=== PATIENT | male | born 1950 | race Caucasian/White ===

== ENCOUNTER 2018-03-18 08:11 | Day surgery (SDC) | payer MEDICARE, OTHER ==
[2018-03-18] MEDS ORDERED: Gatifloxacin 0.5% Ophth Soln 2.5 ML Bot EYERT SCH (08:15)
[2018-03-18] MEDS ORDERED: Sodium Chloride 0.9% 10 ML Syringe FLUSH PRN (08:15)
[2018-03-18] MEDS ORDERED: Sodium Chloride 0.9% 1,000 ML IV SCH (08:15)
[2018-03-18] MEDS: Cyclopentolate 1% Opth Soln 2 ML Bottle EYERT SCH ×3 (08:33→08:57)
[2018-03-18] MEDS: Phenylephrine 10% Ophth Soln 5 ML Bot EYERT SCH ×3 (08:38→09:02)
[2018-03-18] MEDS ORDERED: Midazolam 1 MG/ML 2 ML SDV IV ONE (10:15)
[2018-03-18] MEDS ORDERED: Midazolam 1 MG/ML 2 ML SDV ONE (10:25)
[2018-03-18] MEDS ORDERED: Balanced Salt Solution Ophth Irrig 15 ML Bottle EYERT ONE (10:27)
[2018-03-18] MEDS ORDERED: Water For Irrigation,Sterile 1,500 ML Container IRR ONE (10:27)
[2018-03-18] MEDS ORDERED: Balanced Salt Solution Plus Ophth Irrig 500 ML Bottle IOCULAR ONE (10:27)
[2018-03-18] MEDS ORDERED: EPINEPHrine 1 MG/ML SDV ONE (10:27)
[2018-03-18] MEDS ORDERED: Carbachol 0.01% Intraocular 1.5 ML Vial EYERT ONE (10:27)
[2018-03-18] MEDS ORDERED: Dexamethasone/Neomycin/Polymyxin B Ophth Oint 3.5 GM Tube EYERT ONE (10:28)
[2018-03-18] MEDS ORDERED: Lidocaine 2% with EPINEPHrine 1:100,000 20 ML MDV INJECT ONE (10:28)
[2018-03-18] MEDS ORDERED: Lidocaine 1% 10 ML MDV INJECT ONE (10:29)
[2018-03-18] MEDS ORDERED: Tetracaine HCl/PF 0.5% 4 ML Bottle EYEBOTH ONE (10:29)
[2018-03-18] MEDS ORDERED: Hyaluronate Sodium 1% 0.85 ML Syringe IOCULAR ONE (10:29)
--- NOTE | 2018-03-19 08:48 | OR ---
DATE OF SURGERY: 03/18/2018 SURGEON: Don Gautam MD PREOPERATIVE DIAGNOSIS: Cataract, right eye. POSTOPERATIVE DIAGNOSIS: Cataract, right eye. OPERATION PERFORMED: Phacoemulsification with posterior chamber lens insertion, right eye. HISTORY: The patient presents at this time with an increasing amount of difficulty seeing to read and he also has glare at night for the right eye. The vision for the right eye is 20/60. The right lens has a 3+ nuclear sclerosis and a 2+ posterior subcapsular cataract. This eye has a combined cataract and a cataract of aging. FINDINGS: The patient was taken to the operating room where appropriate anesthesia, sedation and monitoring were provided. A retrobulbar block was given on the right side. The eye was massaged and was found to be appropriately soft. The eye and eyelids were then prepped and draped in the usual sterile manner. A lid speculum was placed. A micro sharp blade was used to enter the anterior chamber inside the limbus superior-temporally. Xylocaine was irrigated into the eye at this site. Healon was irrigated into the eye through this site. Then using a 2.85 mm corneal blade an entry was made into the anterior chamber just inside the limbus temporally. Healon was again irrigated into the eye. Then using a cystitome, the anterior capsulorrhexis was created. The lens nucleus was hydrodissected using a 27 gauge cannula and balanced salt solution. The phacoemulsification unit was introduced through the temporal site and the Yvon spatula through the superior temporal site. In so doing, the lens nucleus was phacoemulsified. The cortical fragments of the lens were removed using the irrigation aspiration unit. The posterior capsule was polished. Healon was irrigated into the eye. The posterior chamber lens was inserted and rotated into position inside the capsular bag. The Healon was irrigated out of the eye. Miostat was irrigated into the eye and the pupil rounded nicely. A single interrupted 10-0 Nylon suture was placed through the temporal corneal incision site. Balanced salt solution was irrigated into the eye. The wound was tested and found to be tight. Maxitrol ointment was placed into the patient's right eye. The eyelids were closed and an eye patch and mclain shield were placed. The patient left the operating room in good condition. /[id number]/MODL
== END 2018-03-18 11:20 | disposition home or self-care (01) ==
LOC: KA.SDS 08:11
PROVIDERS: ATTEND Ophthalmology
DX: E11.36 Type 2 diabetes mellitus with diabetic cataract (principal); H25.811 Combined forms of age-related cataract, right eye; F17.220 Nicotine dependence, chewing tobacco, uncomplicated; E78.5 Hyperlipidemia, unspecified; N40.1 Benign prostatic hyperplasia with lower urinary tract symptoms; R35.1 Nocturia; Z79.84 Long term (current) use of oral hypoglycemic drugs; Z79.82 Long term (current) use of aspirin; E66.9 Obesity, unspecified
CPT/HCPCS: 66984; 82962; A9270; C1780; J0171; J2001; J2250; J7030; 00142

== ENCOUNTER 2018-04-15 05:54 | Day surgery (SDC) | payer MEDICARE, OTHER ==
[2018-04-15] MEDS ORDERED: Sodium Chloride 0.9% 1,000 ML IV SCH (06:00)
[2018-04-15] MEDS ORDERED: Sodium Chloride 0.9% 10 ML Syringe FLUSH PRN (06:00)
[2018-04-15] MEDS ORDERED: Gatifloxacin 0.5% Ophth Soln 2.5 ML Bot EYELF SCH (06:00)
[2018-04-15] MEDS: Cyclopentolate 1% Opth Soln 2 ML Bottle EYELF SCH ×3 (06:35→06:56)
[2018-04-15] MEDS: Phenylephrine 10% Ophth Soln 5 ML Bot EYELF SCH ×3 (06:40→07:01)
[2018-04-15] MEDS ORDERED: Midazolam 1 MG/ML 2 ML SDV IV ONE (07:41)
[2018-04-15] MEDS ORDERED: Midazolam 1 MG/ML 2 ML SDV ONE ×2 (07:58→08:20)
[2018-04-15] MEDS ORDERED: Water For Irrigation,Sterile 1,500 ML Container IRR ONE (07:59)
[2018-04-15] MEDS ORDERED: Balanced Salt Solution Ophth Irrig 15 ML Bottle EYELF ONE (07:59)
[2018-04-15] MEDS ORDERED: Balanced Salt Solution Plus Ophth Irrig 500 ML Bottle IOCULAR ONE (07:59)
[2018-04-15] MEDS ORDERED: Dexamethasone/Neomycin/Polymyxin B Ophth Oint 3.5 GM Tube EYELF ONE (08:00)
[2018-04-15] MEDS ORDERED: Lidocaine 2% with EPINEPHrine 1:100,000 20 ML MDV INJECT ONE (08:00)
[2018-04-15] MEDS ORDERED: Carbachol 0.01% Intraocular 1.5 ML Vial EYELF ONE (08:00)
[2018-04-15] MEDS ORDERED: EPINEPHrine 1 MG/ML SDV ONE (08:00)
[2018-04-15] MEDS ORDERED: Lidocaine 1% 10 ML MDV INJECT ONE (08:01)
[2018-04-15] MEDS ORDERED: Hyaluronate Sodium 1% 0.85 ML Syringe IOCULAR ONE (08:01)
[2018-04-15] MEDS ORDERED: Tetracaine HCl/PF 0.5% 4 ML Bottle EYEBOTH ONE (08:01)
--- NOTE | 2018-04-16 10:00 | OR ---
DATE OF SURGERY: 04/15/2018 SURGEON: Don Gautam MD PREOPERATIVE DIAGNOSIS: Cataract, left eye. POSTOPERATIVE DIAGNOSIS: Cataract, left eye. OPERATION PERFORMED: Phacoemulsification with posterior chamber lens insertion, left eye. HISTORY: The patient presents at this time with an increasing amount of difficulty seeing to drive at night using the left eye. The vision for the left eye is 20/60. The left lens has a 3+ nuclear sclerosis and 1 to 2+ posterior subcapsular cataract change. His eye is a combined cataract and a cataract of aging. FINDINGS: The patient was taken to the operating room where appropriate anesthesia, sedation and monitoring were provided. A retrobulbar block was given on the left side. The eye was massaged and was found to be appropriately soft. The eye and eyelids were then prepped and draped in the usual sterile manner. A lid speculum was placed. A micro sharp blade was used to enter the anterior chamber inside the limbus inferior-temporally. Xylocaine was irrigated into the eye at this site. Healon was irrigated into the eye through this site. Then using a 2.85 mm corneal blade an entry was made into the anterior chamber just inside the limbus temporally. Healon was again irrigated into the eye. Then using a cystitome, the anterior capsulorrhexis was created. The lens nucleus was hydrodissected using a 27 gauge cannula and balanced salt solution. The phacoemulsification unit was introduced through the temporal site and the Yvon spatula through the inferior temporal site. In so doing, the lens nucleus was phacoemulsified. The cortical fragments of the lens were removed using the irrigation aspiration unit. The posterior capsule was polished. Healon was irrigated into the eye. The posterior chamber lens was inserted and rotated into position inside the capsular bag. The Healon was irrigated out of the eye. Miostat was irrigated into the eye and the pupil rounded nicely. A single interrupted 10-0 Nylon suture was placed through the temporal corneal incision site. Balanced salt solution was irrigated into the eye. The wound was tested and found to be tight. Maxitrol ointment was placed into the patient's left eye. The eyelids were closed and an eye patch and a mclain shield were placed. Attention was turned to the patient's right eye, which had been given tetracaine and Betadine drops. A lid speculum was placed. An existing 10-0 nylon suture for the right eye was then removed using a forceps. Betadine drops were placed in the patient's eye and the eyelid was closed. The patient left the operating room in good condition. /[id number]/MODL
== END 2018-04-15 09:00 | disposition home or self-care (01) ==
LOC: KA.SDS 05:54
PROVIDERS: ATTEND Ophthalmology
DX: E11.36 Type 2 diabetes mellitus with diabetic cataract (principal); H25.812 Combined forms of age-related cataract, left eye; E11.40 Type 2 diabetes mellitus with diabetic neuropathy, unspecified; E66.9 Obesity, unspecified; Z68.34 Body mass index [BMI] 34.0-34.9, adult; F17.220 Nicotine dependence, chewing tobacco, uncomplicated; M19.90 Unspecified osteoarthritis, unspecified site; N40.1 Benign prostatic hyperplasia with lower urinary tract symptoms; R35.1 Nocturia; E78.5 Hyperlipidemia, unspecified; Z79.82 Long term (current) use of aspirin; Z79.4 Long term (current) use of insulin; Z79.899 Other long term (current) drug therapy
CPT/HCPCS: 00142; 82962; A9270-GY; C1780; J0171; J2001; J2250; J7030

== ENCOUNTER 2019-11-13 17:56 | Emergency (ER) | payer MEDICARE, OTHER ==
[2019-11-13] MEDS ORDERED: Diphtheria,Pertussis(Acell),Tetanus Vaccine 0.5 ML SDV IM ONE (18:21)
[2019-11-13] MEDS ORDERED: ceFAZolin 1 GM Vial IM ONE (18:29)
[2019-11-13 18:30] VITALS: BP 186/75; PULSE 93
--- NOTE | 2019-11-13 18:38 | EDM.PDOC ---
ED HPI GENERAL MEDICAL PROBLEM - General Chief Complaint: Upper Extremity Injury/Pain Stated Complaint: LACERATED FINGER Time Seen by Provider: 11/13/19 18:15 Source of Information: Reports: Patient History Limitations: Reports: No Limitations - History of Present Illness INITIAL COMMENTS - FREE TEXT/NARRATIVE: 69 YO WM PRESENTS TO ER COMPLAINING OF INJURY TO LEFT INDEX FINGER. PT REPORTS HE WAS USING A WOOD SPLITTER AND ACCIDENTALLY INJURED THE TIP OF HIS LEFT INDEX FINGER. PT WITH A SMALL 1CM LACERATION TO TIP OF FINGER WITH SIGNIFICANT SWELLING. PT REPORTS MILD PAIN. PT DENIES ANY OTHER INJURY. BLEEDING WELL CONTROLLED. PT DENIES ANY FUNCTIONAL DEFICIT OR NUMBNESS TO FINGER TIP. Onset: Today Location: Reports: Upper Extremity, Left Quality: Reports: Ache Severity: Moderate Improves with: Reports: Rest Worsens with: Reports: Movement Associated Symptoms: Reports: No Other Symptoms - Related Data Allergies Allergy/AdvReac Type Severity Reaction Status Date / Time No Known Allergies Allergy Verified 04/15/18 06:00 Home Meds: Home Meds *Flex-A-Min Joint Flex 2 tab PO DAILY 03/13/18 [History] Aspirin [Adult Aspirin] 81 mg PO DAILY 03/13/18 [History] Calcium Carb/D3/Mag AA Chelate [Coral Calcium Capsule] 1 cap PO DAILY 03/13/18 [History] Fish Oil/Borage/Flax/Om3,6,9 1 [[place] 3-6-9 Complex Softgel] 1 cap PO DAILY 03/13/18 [History] Garlic 10 mg PO DAILY 03/13/18 [History] Multivitamin [Super Multivitamin] 1 tab PO DAILY 03/13/18 [History] Saw/Vit E/Sod Jennifer/Lyc/Beta/Pyg [Prostate Health Caplet] 1 cap PO DAILY 03/13/18 [History] Tamsulosin [Tamsulosin 24 Hr] 0.4 mg PO DAILY 03/13/18 [History] Vitamin E Acid Succinate [Vitamin E] 200 unit PO DAILY 03/13/18 [History] atorvaSTATin Calcium [Atorvastatin Calcium] 20 mg PO DAILY 03/13/18 [History] metFORMIN HCl [Metformin HCl] 1,000 mg PO BID 03/13/18 [History] Amoxicillin/Clavulanate K [Augmentin 875-125 MG] 1 tab PO BID #20 tablet 11/13/19 [Rx] traMADol [Ultram] 50 mg PO Q6H PRN #15 tab 11/13/19 [Rx] Past Medical History HEENT History: Reports: Cataract Cardiovascular History: Reports: High Cholesterol Gastrointestinal History: Reports: None Genitourinary History: Reports: BPH Musculoskeletal History: Reports: Arthritis Neurological History: Reports: None Endocrine/Metabolic History: Reports: Diabetes, Type II, Obesity/BMI 30+ - Infectious Disease History Infectious Disease History: Reports: Chicken Pox - Past Surgical History HEENT Surgical History: Reports: Cataract Surgery Cardiovascular Surgical History: Reports: None GI Surgical History: Reports: Hernia Repair/Other Male Surgical History: Reports: None Endocrine Surgical History: Reports: None Neurological Surgical History: Reports: None Musculoskeletal Surgical History: Reports: Other (See Below) Other Musculoskeletal Surgeries/Procedures:: back surgery Social & Family History - Family History Family Medical History: Noncontributory - Caffeine Use Caffeine Use: Reports: Coffee, Soda, Tea Review of Systems - Review of Systems Review Of Systems: See Below Constitutional: Reports: No Symptoms Eyes: Reports: No Symptoms Ears: Reports: No Symptoms Nose: Reports: No Symptoms Mouth/Throat: Reports: No Symptoms Respiratory: Reports: No Symptoms Cardiovascular: Reports: No Symptoms GI/Abdominal: Reports: No Symptoms Genitourinary: Reports: No Symptoms Musculoskeletal: Reports: Hand Pain Skin: Reports: Wound (1 CM LACERATION TO LEFT INDEX FINGER TIP) Neurological: Reports: No Symptoms Psychiatric: Reports: No Symptoms ED EXAM, GENERAL - Physical Exam Exam: See Below Exam Limited By: No Limitations General Appearance: Alert, WD/WN, No Apparent Distress Head: Atraumatic, Normocephalic Neck: Normal Inspection, Supple, Non-Tender, Full Range of Motion Respiratory/Chest: No Respiratory Distress, Lungs Clear, Normal Breath Sounds, No Accessory Muscle Use, Chest Non-Tender Cardiovascular: Normal Peripheral Pulses, Regular Rate, Rhythm, No Edema, No Gallop, No JVD, No Murmur, No Rub GI/Abdominal: Normal Bowel Sounds, Soft, Non-Tender, No Organomegaly, No Distention, No Abnormal Bruit, No Mass Back Exam: Normal Inspection, Full Range of Motion, NT Extremities: Normal Range of Motion, No Pedal Edema, Normal Capillary Refill Neurological: Alert, Oriented, CN II-XII Intact, Normal Cognition, Normal Gait, Normal Reflexes, No Motor/Sensory Deficits Psychiatric: Normal Affect, Normal Mood Skin Exam: Wound/Incision (1 CM LACERATION TO LEFT INDEX FINGER TIP) Lymphatic: No Adenopathy ED TRAUMA EXTREMITY PROCEDURES - Laceration/Wound Repair Left Distal Digit - 2nd (Index) Lac/Wound Length In cm: 1 Appearance: Superficial Distal NVT: Neuro & Vascular Intact Skin Prep: Chlorhexidine (Hibiciens), Saline Exploration/Debridement/Repair: Wound Explored Closed With: Other (DRESSING ONLY- NO SUTURES) Sterile Dressing Applied: Provider Tetanus Status Addressed: Yes Complications: No - Splinting Left 2nd Digit Splint Site: LEFT INDEX FINGER Pre-Procedure NV Status: Normal Post-Procedure NV Status: Normal Splint Material: Aluminum-Foam Splint Design: Volar Applied & Form Fitted By: Provider Provider Post-Splint Application NV Check: NV Status Normal, Good Position Complications: No Course - Orders/Labs/Meds Orders: Active Orders 24 hr Category Date Time Status Vaccines to be Administered [RC] PER UNIT ROUTINE Care 11/13/19 18:22 Active Fingers Second Digit Lt F1 [CR] Stat Exams 11/13/19 18:20 Ordered ceFAZolin [Ancef] Med 11/13/19 18:29 Once 1 gm IM ONETIME ONE Meds: Medications Discontinued Medications Generic Name Dose Route Start Last Admin Trade Name Freq PRN Reason Stop Dose Admin Diphtheria/Tetanus/Acell Pertussis 0.5 ml 11/13/19 18:21 Adacel IM 11/13/19 18:22 .ONCE ONE - Radiology Interpretation Free Text/Narrative:: LEFT INDEX FINGER- COMMINUTED FRACTURE OF DISTAL TUFT OF LEFT 2ND DIGIT Departure - Departure Time of Disposition: 19:01 Disposition: Home, Self-Care 01 Condition: Good Clinical Impression: Open fracture of distal phalanx of left index finger Qualifiers: Encounter type: initial encounter Fracture alignment: nondisplaced Qualified Code(s): S62.661B - Nondisplaced fracture of distal phalanx of left index finger, initial encounter for open fracture - Discharge Information Prescriptions: Amoxicillin/Clavulanate K [Augmentin 875-125 MG] 1 tab PO BID #20 tablet traMADol [Ultram] 50 mg PO Q6H PRN #15 tab PRN Reason: Pain Instructions: Finger Fracture, Adult, [id number] Referrals: Angle Duran MD [Primary Care Provider] - Vince Miller MD [Physician] - Additional Instructions: 1. DISCHARGE HOME 2. AUGMENTIN 875MG TWICE/DAY X 10 DAYS 3. ULTRAM 50MG EVERY 4-6 HOURS NEEDED FOR PAIN 4. MOTRIN 800MG EVERY 8 HOURS NEEDED FOR PAIN 5. FOLLOW UP WITH DR TIDWELL AND DR NISHA HUA PER PCP 6. RETURN TO ER FOR WORSENING SYMPTOMS - My Orders Last 24 Hours: My Active Orders 11/13/19 18:20 Fingers Second Digit Lt F1 [CR] Stat 11/13/19 18:22 Vaccines to be Administered [RC] PER UNIT ROUTINE 11/13/19 18:29 ceFAZolin [Ancef] 1 gm IM ONETIME ONE - Assessment/Plan Last 24 Hours: My Active Orders 11/13/19 18:20 Fingers Second Digit Lt F1 [CR] Stat 11/13/19 18:22 Vaccines to be Administered [RC] PER UNIT ROUTINE 11/13/19 18:29 ceFAZolin [Ancef] 1 gm IM ONETIME ONE Assessment:: 1. OPEN COMMINUTED FRACTURE OF DISTAL TUFT OF LEFT INDEX FINGER Plan: 1. DISCHARGE HOME 2. AUGMENTIN 875MG TWICE/DAY X 10 DAYS 3. ULTRAM 50MG EVERY 4-6 HOURS NEEDED FOR PAIN 4. MOTRIN 800MG EVERY 8 HOURS NEEDED FOR PAIN 5. FOLLOW UP WITH DR TIDWELL AND DR NISHA HUA PER PCP 6. RETURN TO ER FOR WORSENING SYMPTOMS
--- NOTE | 2019-11-13 18:49 | CR ---
[id number] RAD/RAD Fingers Left EXAM: 3 VIEWS LEFT 2ND DIGIT. INDICATION: LACERATION, SWELLING AFTER INJURY. COMPARISON: None. DISCUSSION: Acute multi fragmentary fracture involving the distal tuft of the left 2nd digit. There is associated soft tissue defect. No other fractures are identified. Mild to moderate degenerative changes seen throughout the visualized left hand. These findings are most pronounced at the 1st carpometacarpal joint. IMPRESSION: 1. As above. Perry Roberts DO 11/13/19 [id number] Thank you for allowing us to participate in the care of your patient.
== END 2019-11-13 19:15 | disposition home or self-care (01) ==
LOC: KA.ED 17:56
DX: S62.661B Nondisplaced fracture of distal phalanx of left index finger, initial encounter for open fracture (principal); E78.00 Pure hypercholesterolemia, unspecified; M19.90 Unspecified osteoarthritis, unspecified site; E11.9 Type 2 diabetes mellitus without complications; E66.9 Obesity, unspecified; Z79.82 Long term (current) use of aspirin; Z79.84 Long term (current) use of oral hypoglycemic drugs; Z79.899 Other long term (current) drug therapy
CPT/HCPCS: 12001; 73140-F1; 90471; 90715; 96372; 99283; 99283-25; J0690

== ENCOUNTER 2024-05-28 17:50 | Emergency (ER) | payer MEDICARE, OTHER ==
[2024-05-28 18:49] LABS: BILIRUBIN,URINE SMALL (NEGATIVE); COLOR,URINE DARK YELLOW (YELLOW); GLUCOSE,URINE NEGATIVE (NEGATIVE); KETONES,URINE 15 mg/dL (NEGATIVE); LEUKOCYTE ESTERASE,URINE NEGATIVE (NEGATIVE); NITRITE,URINE NEGATIVE (NEGATIVE); OCCULT BLOOD,URINE NEGATIVE (NEGATIVE); PH,URINE 5.5 (5.0-9.0); PROTEIN,URINE 30 mg/dL (NEGATIVE)
[2024-05-28 19:05] LABS: APPEARANCE,URINE SLIGHTLY CLOUDY (CLEAR)
[2024-05-28 19:06] LABS: BACTERIA,URINE RARE /HPF (NONE TO FEW); EPITHELIAL CELLS,URINE RARE /LPF; GRANULAR CASTS,URINE RARE; MUCUS,URINE FEW /LPF (NEGATIVE); RBC,URINE 0-5 /HPF (0-5); WBC,URINE 0-5 /HPF (0-5)
[2024-05-28] MEDS: Sodium Chloride 0.9% 10 ML Syringe FLUSH PRN (19:18)
[2024-05-28 19:25] LABS: BASOPHILS ABSOLUTE AUTO 0.03 10^3/uL (0.00-0.10); BASOPHILS PERCENT AUTO 0.4 % (0.0-1.0); EOSINOPHILS ABSOLUTE AUTO 0.12 10^3/uL (0.10-0.30); EOSINOPHILS PERCENT AUTO 1.7 % (1.0-3.0); HEMATOCRIT 41.7 % (40.0-52.0); HEMOGLOBIN 14.6 g/dL (13.0-17.0); IMMATURE GRAN ABSOLUTE AUTO 0.04 10^3/uL (0.00-0.04); IMMATURE GRAN PERCENT AUTO 0.6 % (0.0-0.4); LYMPHOCYTES ABSOLUTE AUTO 1.47 10^3/uL (1.00-4.00); LYMPHOCYTES PERCENT AUTO 21.3 % (20.0-40.0); MEAN CORPUSCULAR HEMOGLOBIN 30.2 pg (27.0-31.0); MEAN CORPUSCULAR VOLUME 86.3 fL (82.0-92.0); MEAN PLATELET VOLUME 10.6 fL (7.4-10.4); MONOCYTES ABSOLUTE AUTO 0.67 10^3/uL (0.10-0.80); MONOCYTES PERCENT AUTO 9.7 % (2.0-8.0); NEUTROPHILS ABSOLUTE AUTO 4.58 10^3/uL (2.50-7.00); NEUTROPHILS PERCENT AUTO 66.3 % (50.0-70.0); PLATELET COUNT,PLT 224 10^3/uL (150-400); RED BLOOD CELL COUNT 4.83 10^6/uL (4.50-6.00); RED CELL DISTRIBUTION WIDTH 13.4 % (11.5-14.5); WHITE BLOOD CELL COUNT,WBC 6.91 10^3/uL (5.00-10.00)
[2024-05-28] MEDS: Ketorolac 30 MG/ML SDV IVPUSH ONE (19:27)
[2024-05-28] MEDS: LORazepam 2 MG/ML SDV IVPUSH ONE (19:33)
[2024-05-28 19:39] LABS: ANION GAP 12.1 mmol/L (5-15); CALCIUM 9.2 mg/dL (8.7-10.3); CARBON DIOXIDE,CO2 31.3 mmol/L (21.0-32.0); CREATININE 0.81 mg/dL (0.51-1.17); EST CRCL DRUG DOSING (CG) 95.63 mL/min; POTASSIUM,K 4.4 mmol/L (3.5-5.1)
[2024-05-28] MEDS: methylPREDNISolone Sodium Succinate 125 MG/2 ML SDV IVPUSH ONE (19:42)
== END 2024-05-28 20:16 | disposition home or self-care (01) ==
LOC: KA.ED 17:50
DX: M54.50 Low back pain, unspecified (principal); E78.00 Pure hypercholesterolemia, unspecified; E66.9 Obesity, unspecified; E11.9 Type 2 diabetes mellitus without complications; Z79.82 Long term (current) use of aspirin; Z79.84 Long term (current) use of oral hypoglycemic drugs; Z79.899 Other long term (current) drug therapy; Z68.33 Body mass index [BMI] 33.0-33.9, adult
CPT/HCPCS: 72100; 80048; 81001; 85025; 96374; 96375; 99283-25; J1885; J2060; J2919

== ENCOUNTER 2024-05-30 16:56 | Inpatient (IN) | payer MEDICARE, OTHER ==
[2024-05-30] MEDS ORDERED: Sodium Chloride 0.9% 10 ML Syringe FLUSH PRN (17:03)
[2024-05-30] MEDS: Ketorolac 30 MG/ML SDV IVPUSH ONE (17:15)
[2024-05-30] MEDS: LORazepam 2 MG/ML SDV IVPUSH ONE (17:17)
[2024-05-30 17:34] LABS: BASOPHILS ABSOLUTE AUTO 0.03 10^3/uL (0.00-0.10); BASOPHILS PERCENT AUTO 0.2 % (0.0-1.0); EOSINOPHILS ABSOLUTE AUTO 0.01 10^3/uL (0.10-0.30); EOSINOPHILS PERCENT AUTO 0.1 % (1.0-3.0); HEMATOCRIT 45.1 % (40.0-52.0); HEMOGLOBIN 15.6 g/dL (13.0-17.0); IMMATURE GRAN PERCENT AUTO 0.7 % (0.0-0.4); LYMPHOCYTES ABSOLUTE AUTO 1.31 10^3/uL (1.00-4.00); LYMPHOCYTES PERCENT AUTO 9.5 % (20.0-40.0); MEAN CORPUSCULAR HEMOGLOBIN 30.5 pg (27.0-31.0); MEAN CORPUSCULAR HGB CONC 34.6 g/dL (32.0-36.0); MEAN CORPUSCULAR VOLUME 88.3 fL (82.0-92.0); MEAN PLATELET VOLUME 10.9 fL (7.4-10.4); MONOCYTES PERCENT AUTO 2.2 % (2.0-8.0); NEUTROPHILS ABSOLUTE AUTO 12.01 10^3/uL (2.50-7.00); NEUTROPHILS PERCENT AUTO 87.3 % (50.0-70.0); PLATELET COUNT,PLT 277 10^3/uL (150-400); RED BLOOD CELL COUNT 5.11 10^6/uL (4.50-6.00); RED CELL DISTRIBUTION WIDTH 13.6 % (11.5-14.5); WHITE BLOOD CELL COUNT,WBC 13.76 10^3/uL (5.00-10.00)
[2024-05-30 17:47] LABS: ALANINE AMINOTRANSFERASE,ALT 38 U/L (14-63); ALBUMIN 4.33 g/dL (3.40-5.00); ALKALINE PHOSPHATASE 76 U/L (46-116); ANION GAP 15.5 mmol/L (5-15); ASPARTATE AMNIOTRANSFERASE,AST 24 U/L (15-37); BLOOD UREA NITROGEN,BUN 25 mg/dL (7-18); CALCIUM 9.5 mg/dL (8.7-10.3); CARBON DIOXIDE,CO2 28.7 mmol/L (21.0-32.0); CHLORIDE,CL 101 mmol/L (98-107); CREATININE 0.86 mg/dL (0.51-1.17); GLUCOSE RANDOM 197 mg/dL (70-140); POTASSIUM,K 4.2 mmol/L (3.5-5.1); PROTEIN TOTAL,TP 8.1 g/dL (6.4-8.2); SODIUM,NA 141 mmol/L (136-145)
[2024-05-30 17:48] LABS: ESTIMATED GFR 91 mL/min (>=60)
[2024-05-30] MEDS ORDERED: Naloxone 0.4 MG/ML SDV IVPUSH PRN (18:40)
[2024-05-30] MEDS ORDERED: Morphine 2 MG/ML SYRINGE IVPUSH PRN (18:40)
[2024-05-30] MEDS ORDERED: Ondansetron 4 MG/2 ML SDV IV PRN (18:40)
[2024-05-30] MEDS ORDERED: Ondansetron 4 MG Tab.DIS PO PRN (18:40)
[2024-05-30] MEDS ORDERED: Melatonin 3 MG Tab PO PRN (18:40)
[2024-05-30] MEDS: metFORMIN 500 MG Tab PO SCH (21:11)
[2024-05-30] MEDS: oxyCODONE 5 MG Tab PO PRN (21:13)
[2024-05-30] MEDS: Nicotine 14 MG/24 Hr Patch TRDERM SCH (22:27)
[2024-05-31] MEDS: Tamsulosin 0.4 MG Cap.ER PO SCH (08:43)
[2024-05-31] MEDS: Aspirin 81 MG Tab.EC PO SCH (08:44)
[2024-05-31] MEDS: atorvaSTATin 40 MG Tab PO SCH (08:45)
[2024-05-31] MEDS: Enoxaparin 40 MG/0.4 ML Syringe SUBCUT SCH (08:46)
[2024-05-31] MEDS ORDERED: UBIDECARENONE 100 MG PO SCH (09:00)
[2024-05-31] MEDS: Polyethylene Glycol 3350 Powder 17 GM Packet PO PRN (09:04)
[2024-05-31] MEDS: Methocarbamol 500 MG Tab PO SCH (16:27)
[2024-05-31] MEDS: Celecoxib 100 MG Cap PO SCH (20:35)
[2024-05-31] MEDS: oxyCODONE 5 MG Tab PO PRN (22:12)
[2024-06-01] MEDS: Acetaminophen 325 MG Tab PO PRN (10:43)
[2024-06-01] MEDS: LORazepam 2 MG/ML SDV IVPUSH ONE (15:10)
[2024-06-02] MEDS: LORazepam 2 MG/ML SDV IVPUSH ONE (07:30)
== END 2024-06-03 13:48 | disposition home or self-care (01) | DRG 552 ==
LOC: KA.ED 16:56 → KA.MS 18:26
PROVIDERS: ADMIT Family Medicine; ATTEND Family Medicine
DX: M54.50 Low back pain, unspecified (principal); F33.9 Major depressive disorder, recurrent, unspecified; G89.29 Other chronic pain; N40.1 Benign prostatic hyperplasia with lower urinary tract symptoms; E78.00 Pure hypercholesterolemia, unspecified; N39.43 Post-void dribbling; H54.7 Unspecified visual loss; E66.9 Obesity, unspecified; E11.9 Type 2 diabetes mellitus without complications; K59.09 Other constipation; M19.90 Unspecified osteoarthritis, unspecified site; E11.42 Type 2 diabetes mellitus with diabetic polyneuropathy; F40.240 Claustrophobia; Z79.82 Long term (current) use of aspirin; Z79.84 Long term (current) use of oral hypoglycemic drugs; Z79.52 Long term (current) use of systemic steroids; Z72.0 Tobacco use; Z79.899 Other long term (current) drug therapy; Z98.49 Cataract extraction status, unspecified eye; Z98.890 Other specified postprocedural states; Z91.81 History of falling; Z68.33 Body mass index [BMI] 33.0-33.9, adult; Z85.46 Personal history of malignant neoplasm of prostate
CPT/HCPCS: 72131; 72148; 80053; 82947; 85025; 96374; 96375; 97110-GP; 97116-GP; 97161-GP; 99223-GT; 99232-GT; 99233-GT; 99238-GT; 99284; 99285-25; A9270-GY; J1650; J1885; J2060; Q3014

== ENCOUNTER 2024-06-16 10:27 | Inpatient (IN) | payer MEDICARE, OTHER ==
[2024-06-16] MEDS ORDERED: oxyCODONE 5 MG Tab PO PRN (10:36)
[2024-06-16] MEDS ORDERED: Glucagon,Human Recombinant 1 MG Vial IM PRN (10:36)
[2024-06-16] MEDS ORDERED: Trolamine Salicylate/Aloe Vera 10% Crm 85 GM Tube TOP PRN (10:36)
[2024-06-16] MEDS ORDERED: Acetaminophen 325 MG Tab PO PRN (10:36)
[2024-06-16] MEDS ORDERED: 50% Dextrose in Water 50 ML Syringe IVPUSH PRN (10:36)
[2024-06-16] MEDS ORDERED: Glucose Gel 15 GM in 37.5 GM Tube PO PRN (10:36)
[2024-06-16] MEDS ORDERED: Ondansetron 4 MG Tab.DIS PO PRN (10:36)
[2024-06-16] MEDS ORDERED: Ondansetron 4 MG/2 ML SDV IV PRN (10:36)
[2024-06-16] MEDS: Cyclobenzaprine 5 MG Tab PO SCH (13:39)
[2024-06-16] MEDS: metFORMIN 500 MG Tab PO SCH (20:46)
[2024-06-16] MEDS: Celecoxib 100 MG Cap PO SCH (20:47)
[2024-06-16] MEDS: oxyCODONE ER 10 MG TAB.ER PO SCH (20:48)
[2024-06-17] MEDS: atorvaSTATin 10 MG Tab PO SCH (08:28)
[2024-06-17] MEDS: Aspirin 81 MG Tab.EC PO SCH (08:28)
[2024-06-17] MEDS: Tamsulosin 0.4 MG Cap.ER PO SCH (08:29)
[2024-06-17] MEDS: Nicotine 14 MG/24 Hr Patch TRDERM SCH (08:30)
[2024-06-17] MEDS: Polyethylene Glycol 3350 Powder 17 GM Packet PO PRN (13:32)
[2024-06-20] MEDS: oxyCODONE 5 MG Tab PO PRN (08:05)
== END 2024-06-20 12:40 | disposition home or self-care (01) | DRG 552 ==
LOC: KA.MS 10:36 → UNDOADMIN 10:36 → KA.MS 10:39
PROVIDERS: ADMIT Internal Medicine; ATTEND Internal Medicine
DX: M47.816 Spondylosis without myelopathy or radiculopathy, lumbar region (principal); R53.81 Other malaise; N40.0 Benign prostatic hyperplasia without lower urinary tract symptoms; G89.29 Other chronic pain; M54.9 Dorsalgia, unspecified; Z98.890 Other specified postprocedural states; Z79.82 Long term (current) use of aspirin; Z79.84 Long term (current) use of oral hypoglycemic drugs; Z72.0 Tobacco use; Z85.46 Personal history of malignant neoplasm of prostate; Z79.899 Other long term (current) drug therapy
CPT/HCPCS: 99316-GT; A9270-GY; Q3014

== ENCOUNTER 2025-01-12 07:59 | Day surgery (SDC) | payer MEDICARE, OTHER ==
[2025-01-12] MEDS ORDERED: Propofol 200 MG/20 ML SDV IV ONE (08:00)
[2025-01-12] MEDS ORDERED: Sodium Chloride 0.9% 10 ML Syringe FLUSH PRN (08:00)
[2025-01-12] MEDS ORDERED: Propofol 200 MG/20 ML SDV ONE ×2 (09:12→10:08)
[2025-01-12] MEDS ORDERED: Midazolam 1 MG/ML 2 ML SDV ONE (09:12)
[2025-01-12] MEDS ORDERED: Lactated Ringers 1,000 ML ONE (10:03)
== END 2025-01-12 11:30 | disposition home or self-care (01) ==
LOC: KA.SDS 07:59
PROVIDERS: ATTEND Surgery
DX: D12.2 Benign neoplasm of ascending colon (principal); D12.0 Benign neoplasm of cecum; D12.3 Benign neoplasm of transverse colon; D12.4 Benign neoplasm of descending colon; K57.31 Diverticulosis of large intestine without perforation or abscess with bleeding; K64.4 Residual hemorrhoidal skin tags; E78.2 Mixed hyperlipidemia; E66.9 Obesity, unspecified; E11.22 Type 2 diabetes mellitus with diabetic chronic kidney disease; N18.2 Chronic kidney disease, stage 2 (mild); K59.04 Chronic idiopathic constipation; Z68.32 Body mass index [BMI] 32.0-32.9, adult
CPT/HCPCS: 00811; 82947; 88305; 99100; J2250; J2704; J7030